=== PATIENT | female | born 1995 | race Caucasian/White ===

== ENCOUNTER 2017-07-12 22:21 | Emergency (ER) | payer SELFPAY ==
[~2017-07-12] VITALS: Ht 170.2 cm; Wt 62.1 kg
[2017-07-13 01:01] VITALS: BP 106/66
== END 2017-07-13 01:01 | disposition home or self-care (01) ==
LOC: ED 22:21
DX: J02.0 Streptococcal pharyngitis (principal)
CPT/HCPCS: J0561; J1100